=== PATIENT | female | born 1975 | race Asian ===

== ENCOUNTER 2023-10-28 08:51 | Inpatient (IN) ==
--- NOTE | 2023-10-28 09:30 | Emergency Department Note ---
Impression & Plan Pyelonephritis, Acute flank pain ED Provider Note ED Provider Note NAME: HERMILO ORELLANA AGE:47 SEX: Female : 1975 ARRIVES VIA: Private vehicle INFORMANT: Patient ED PROVIDER(s): Rosario Fernandez DO CHIEF COMPLAINT: Urinary symptoms, flank pain, fever HPI: This is a 47-year-old female who presents emergency room due to concern for recent urinary symptoms that began last Saturday. She thought it was because she just had her annual gynecologic exam and was secondary to irritation. However symptoms did not go away and persisted. She states by Saturday she began noticing fevers. Over the weekend patient developed right-sided flank and back pain, had accompanying chills, and felt nauseated. She denies any vomiting. No recent change in stools. She states her urine appears cloudy and dark but she does not notice overt blood. No prior history of kidney problems or kidney stones. She states her temperature reached as high as 39.3 C. PAST MEDICAL HISTORY:See Below PAST SURGICAL HISTORY:See Below FAMILY HISTORY:See Below SOCIAL HISTORY:See Below HOME MEDICATIONS:See Below ALLERGIES:See Below VITALS:See Below PHYSICAL EXAMINATION: GENERAL: alert, unwell appearing, well nourished, no distress, non-toxic EYE EXAM: normal conjunctiva, PERRL and EOM's grossly intact OROPHARYNX: no exudate, no erythema, lips, buccal mucosa, and tongue normal and mucous membranes are moist NECK: supple, no nuchal rigidity, no adenopathy, non-tender LUNGS: Clear to auscultation. Normal chest wall mechanics, no w/r/r HEART: no murmurs, S1 normal and S2 normal ABDOMEN: abdomen soft, non-tender, normo-active bowel sounds, no masses, no rebound or guarding. Pain with palpation along the right flank and into the right CVA region. BACK: Back is symmetrical on inspection and there is no deformity, no midline tenderness, mild right CVA tenderness. SKIN: no rashes, petechiae, orbruising UPPER EXTREMITIES: upper extremities are grossly normal. FROM, nml pulses b/l. LOWER EXTREMITIES: No pitting edema. FROM, nml pulses b/l. NEURO EXAM: Normal sensorium, cranial nerves II-XII grossly intact, normal speech, no facial droop,nogross weakness of arms, no gross weakness of legs. Gross sensation intact. No ataxia. Vital Signs: reviewed and remarkable Differential Diagnosis: UTI, Urethritis, Pyelonephritis, STI, Herpetic, Vaginitis, Hyperglycemia, Yeast, PID, Hemorrhagic Cystitis, amongst other pathologies entertained. MEDICAL DECISION MAKING: This is a 47-year-old female who presents to the emergency department due to concern for urinary symptoms which began last week, worsening right flank pain, fevers and chills. Patient noted to be tachycardic on arrival although other vital signs stable. Labs drawn and sent, IV established, EKG performed at bedside interpreted by me and patient monitored on telemetry. She was started on IV fluids, given IV Toradol for pain. She was given empiric IV Rocephin after review of her allergies. Patient sent for CT of the abdomen and pelvis which did confirm findings concerning for pyelonephritis. Patient did require additional IV morphine here for pain control. While this did help, she required further morphine following this. Due to concern for leukocytosis of 20, elevated procalcitonin, persistent pain and tachycardia, case discussed with the hospitalist team for additional evaluation and management. We did discuss atypical findings noted on CT by radiology and possible need for additional urologic evaluation. Consultation(s): 1334: Discussed with Peter Mcadams hospitalist team, for additional evaluation and management. ER Treatment Provided: See below Diagnostics Interpreted By Me: -ECG: Sinus tachycardia at 120, normal axis, normal intervals, no acute ST/T wave changes -Cardiac Monitoring: An order was placed for continuous cardiac monitoring. The monitor shows a rate of 122 with sinus tachycardia rhythm. -Laboratory studies: As stated above and show below. Triage Nursing Note Reviewed Prior/Outside Records Reviewed Past Med/Surg History Medical History (Updated 10/28/23 @ 16:42 by Roasrio Fernandez DO) Allergies GERD (gastroesophageal reflux disease) Asthma Surgical History (Updated 10/28/23 @ 14:33 by Ann Chakraborty PA-C) History of Family History Father Heart disease Mother Asthma Social History Smoking Status: Never smoker Hx Alcohol Use: Yes Alcohol type: beer, wine and hard liquor Alcohol Intake Frequency: Monthly or Less Hx Substance Use: No Preferred Language: Norwegian Associate Trainer Required: No Beliefs That Will Affect Care: None marital status: Single Current Living Situation: Family Current Living Situation Comment: Lives with her youngest child who is in the 5th grade current occupational status: employed Other Information That Helps Us Care for You: No Feels Safe at Home: Yes Safety Concerns: Feels Safe At This Time Allergies Allergies Allergy/AdvReac Type Severity Reaction Status Date / Time acetaminophen Allergy Rash Verified 10/28/23 10:27 codeine Allergy Rash Verified 10/28/23 10:26 Home Meds Home Medications Medication Instructions Recorded Confirmed Fish Oil 1 cap PO HS 10/28/23 10/28/23 albuterol sulfate 90 mcg/actuation 2 puff inhalation Q4H PRN 10/28/23 10/28/23 aerosol inhaler Shortness Of Breath Or Wheezing cetirizine 10 mg tablet (Zyrtec) 10 mg PO PM 10/28/23 10/28/23 cranberry 1 tab PO HS 10/28/23 10/28/23 lutein 1 tab PO HS 10/28/23 10/28/23 magnesium 1 tab PO HS 10/28/23 10/28/23 multivitamin 1 tab PO DAILY 10/28/23 10/28/23 omeprazole 20 mg tablet,delayed 20 mg PO DAILY PRN gerd 10/28/23 10/28/23 release Results & Data (ED) Vital Signs Vital Signs - 24 hr 10/28/23 08:55 10/28/23 09:24 10/28/23 09:44 Temperature 37.2 C 38.9 C H Temperature Source Temporal Artery Scan Oral Pulse Rate 138 H 122 H Pulse Rate [Apical] Pulse Rate from SpO2 Sensor Pulse Rhythm [Apical] Pulse Strength [Apical] Respiratory Rate 16 Respiratory Effort / Characteristics Non-Labored Respiratory Depth Normal Respiratory Pattern Regular Blood Pressure 115/80 Blood Pressure [Left Arm] Blood Pressure Mean 91 Blood Pressure Mean [Left Arm] Blood Pressure Position [Left Arm] Pulse Oximetry 97 Oxygen Delivery Method Room Air Sepsis Recent Fever Within 48 Hours No Sepsis New/Unexplained Change in Mental Status N/A Sepsis Action Taken by Nursing No Action Required 10/28/23 10:35 10/28/23 10:35 10/28/23 12:07 Temperature 37.1 C 37.1 C 36.8 C Temperature Source Oral Oral Oral Pulse Rate Pulse Rate [Apical] 115 H Pulse Rate from SpO2 Sensor Pulse Rhythm [Apical] Regular Pulse Strength [Apical] Normal Respiratory Rate 18 Respiratory Effort / Characteristics Non-Labored Spontaneous Respiratory Depth Normal Respiratory Pattern Regular Blood Pressure Blood Pressure [Left Arm] 108/65 Blood Pressure Mean Blood Pressure Mean [Left Arm] 79 Blood Pressure Position [Left Arm] Sitting Pulse Oximetry 100 Oxygen Delivery Method Room Air Sepsis Recent Fever Within 48 Hours Sepsis New/Unexplained Change in Mental Status Sepsis Action Taken by Nursing 10/28/23 12:45 10/28/23 12:46 10/28/23 13:21 Temperature Temperature Source Pulse Rate 151 H Pulse Rate [Apical] Pulse Rate from SpO2 Sensor 148 H Pulse Rhythm [Apical] Pulse Strength [Apical] Respiratory Rate 18 Respiratory Effort / Characteristics Respiratory Depth Respiratory Pattern Blood Pressure 115/64 Blood Pressure [Left Arm] Blood Pressure Mean 73 Blood Pressure Mean [Left Arm] Blood Pressure Position [Left Arm] Pulse Oximetry 91 Oxygen Delivery Method Sepsis Recent Fever Within 48 Hours Sepsis New/Unexplained Change in Mental Status Sepsis Action Taken by Nursing 10/28/23 13:30 Temperature Temperature Source Pulse Rate Pulse Rate [Apical] Pulse Rate from SpO2 Sensor 149 H Pulse Rhythm [Apical] Pulse Strength [Apical] Respiratory Rate Respiratory Effort / Characteristics Respiratory Depth Respiratory Pattern Blood Pressure Blood Pressure [Left Arm] Blood Pressure Mean Blood Pressure Mean [Left Arm] Blood Pressure Position [Left Arm] Pulse Oximetry 95 Oxygen Delivery Method Sepsis Recent Fever Within 48 Hours Sepsis New/Unexplained Change in Mental Status Sepsis Action Taken by Nursing Laboratory Data 10/28/23 09:16 10/28/23 09:16 Lab Results 10/28/23 10/28/23 10/28/23 Range/Units 09:16 09:18 10:18 WBC 20.21 H (4.8-10.8) K/ul RBC 4.20 (4.20-5.40) M/uL Hgb 12.6 (12.0-16.0) g/dl Hct 37.0 (37.0-47.0) % MCV 88.1 (80.0-100.0) fL MCH 30.0 (25.0-34.0) pg MCHC 34.1 (32.0-36.0) g/dL RDW Std Deviation 41.3 (36.4-46.3) fL RDW Coeff of Cynthia 12.8 (11.5-14.5) % Plt Count 277 (130-400) K/uL MPV 9.6 (9.4-12.4) fL Immature Gran % (Auto) 0.5 % Neut % (Auto) 89.9 % Lymph % (Auto) 4.7 % Ransom % (Auto) 4.3 % Eos % (Auto) 0.3 % Baso % (Auto) 0.3 % Neut # (Auto) 18.15 H (1.40-6.50) K/uL Lymph # (Auto) 0.95 L (1.20-3.40) K/uL Ransom # (Auto) 0.87 H (0.11-0.59) K/uL Eos # (Auto) 0.06 (0.00-0.50) K/uL Baso # (Auto) 0.07 (0.00-0.20) K/uL Immature Gran # (Auto) 0.11 (0.01-0.20) K/uL Sodium 135 L (136-145) mmol/L Potassium 4.0 (3.5-5.1) mmol/L Chloride 102 (98-107) mmol/L Carbon Dioxide 24 (21-32) mmol/L Anion Gap 9 (3-11) BUN 13 (6-23) mg/dl Creatinine 0.62 (0.6-1.2) mg/dl Est Cr Clr Drug Dosing 95.8 ml/min Est GFR ( Amer) 123.6 ml/min Est GFR (Non-Af Amer) 106.6 ml/min BUN/Creatinine Ratio 21.0 H (10-20) Glucose 137 H (70-99(Fasting)) mg/dl Lactate 1.2 (0.4-2.0) mmol/L Calcium 9.5 (8.6-10.3) mg/dl Magnesium 1.9 (1.7-2.4) mg/dl Total Bilirubin 0.5 (0.2-1.0) mg/dl AST 13 (13-39) U/L ALT 11 (7-52) U/L Alkaline Phosphatase 39 (34-104) U/L Total Protein 8.0 (6.0-8.3) gm/dl Albumin 4.5 (3.4-5.0) gm/dl Globulin 3.5 (2.5-4.0) gm/dl Albumin/Globulin Ratio 1.3 (0.9-2) Lipase 17 (11-82) U/L Procalcitonin 2.24 H (0-0.5) ng/ml Urine Color Yellow Urine Appearance Cloudy A (Clear) Urine pH 6.5 (4.5-7.5) Ur Specific Provencal 1.020 (1.000-1.030) Urine Protein 2+ H (Negative) Urine Glucose (UA) Negative (Negative) Urine Ketones Negative (Negative) Urine Blood 3+ H (Negative) Urine Nitrite Negative (Negative) Urine Bilirubin Negative (Negative) Urine Urobilinogen Negative (Negative) Ur Leukocyte Esterase 3+ H (Negative) Urine RBC 10-30 H (0-4) /hpf Urine WBC >30 H (0-5) /hpf Ur Epithelial Cells 5-10 H (0-5) /lpf Urine Bacteria 3+ H (Negative) Urine Test Negative (Negative) Administered Medications Discontinued Medications Sodium Chloride (Nss) 1,000 mls @ 999 mls/hr IV .Q1H1M ONE Stop: 10/28/23 10:23 Last Infusion: 10/28/23 10:37 Dose: Infused Documented By: Admin: 10/28/23 09:37 Dose: 999 mls/hr Documented By: HETAL Ceftriaxone Sodium (Rocephin) 1,000 mg in 50 mls @ 100 mls/hr IV NOW STA Stop: 10/28/23 10:15 Last Infusion: 10/28/23 10:58 Dose: Infused Documented By: Admin: 10/28/23 10:28 Dose: 100 mls/hr Documented By: HETAL Sodium Chloride (Nss) 1,000 mls @ 999 mls/hr IV .Q1H1M ONE Stop: 10/28/23 10:48 Last Infusion: 10/28/23 15:00 Dose: Infused Documented By: Admin: 10/28/23 10:33 Dose: 999 mls/hr Documented By: HETAL Sodium Chloride (Nss) 1,000 mls @ 125 mls/hr IV .Q8H LOLIS Stop: 11/27/23 13:44 Last Infusion: 10/28/23 16:15 Dose: Infused Documented By: Admin: 10/28/23 14:30 Dose: 125 mls/hr Documented By: WES Cefepime HCl 2,000 mg/ Syringe 20 mls @ 5 mls/min IV NOW ONE; Protocol Stop: 10/28/23 15:03 Last Admin: 10/28/23 14:54 Dose: 5 mls/min Documented By: WES Ioversol (Optiray 320 500ml) 87 ml IV ONCE ONE Stop: 10/28/23 10:51 Last Admin: 10/28/23 10:50 Dose: 87 ml Documented By: DIALLO Ketorolac Tromethamine (Ketorolac Tromethamine 15 Mg/Ml Vial) 10 mg IV NOW ONE Stop: 10/28/23 09:24 Last Admin: 10/28/23 09:35 Dose: 10 mg Documented By: HETAL Morphine Sulfate (Morphine Sulfate 4 Mg/Ml 1 Ml Carp\Vial) 4 mg IV NOW STA Stop: 10/28/23 11:40 Last Admin: 10/28/23 11:52 Dose: 4 mg Documented By: WES Morphine Sulfate (Morphine Sulfate 4 Mg/Ml 1 Ml Carp\Vial) 4 mg IV NOW STA Stop: 10/28/23 13:24 Last Admin: 10/28/23 13:37 Dose: 4 mg Documented By: WES Imaging Data Radiologist's Impression: Abdomen/Pelvis CT 10/28/23 09:[address] WITH IV CONTRAST CT DOSE: 562.87 mGy.cm HISTORY: uti sx, flank pain, f/c TECHNIQUE: Multiaxial CT images of the abdomen and pelvis were performed following the use of intravenous contrast. A dose lowering technique was utilized adhering to the principles of ALARA. COMPARISON STUDY: None. FINDINGS: Mild dependent changes seen at the lung bases. No pneumoperitoneum. No pneumatosis. No acute fractures identified. No hepatic masses. There are few small stones within the gallbladder fundus. No gallbladder wall thickening. The main portal vein is patent. The pancreas, spleen, and adrenal glands unremarkable. There is a punctate stone within the upper pole the left kidney. Mild scarring within the upper pole the left kidney. No left-sided hydronephrosis. There is mild right hydroureteronephrosis to the level of the ureterovesical junction. No obstructing stones identified. There is mild urothelial thickening within the right renal collecting system and right ureter. Subtle heterogeneous enhancement within the right kidney is noted. There is mild right perinephric fat stranding. There is mild bladder wall thickening. The uterus and bilateral adnexa are unremarkable. No pelvic free fluid. No retroperitoneal or pelvic lymphadenopathy. Normal caliber abdominal aorta. No bowel wall thickening or obstruction. Prior rectal anastomosis. No bowel wall thickening or obstruction. Normal appendix. IMPRESSION: 1. There is mild right hydroureteronephrosis to the level of the ureterovesical junction. No obstructing stones identified. There is mild urothelial thickening within the right renal collecting system and right ureter. Subtle heterogeneous enhancement within the right kidney is noted. There is mild right perinephric fat stranding. Therefore, these findings favor a right-sided pyelonephritis/pyelitis. However, this does not explain the right-sided hydronephrosis. This could be due to recently passed stone, an occult stone, or occult obstructing lesion at the ureterovesical junction. Urology consultation recommended. 2. Left-sided nephrolithiasis. No left-sided hydronephrosis. 3. No bowel wall thickening or obstruction. 4. Mild bladder wall thickening. This favors a mild cystitis. Recommend correlation with urinalysis. 5. Normal appendix. 6. Cholelithiasis. No gallbladder wall thickening. ACT 112: Negative or not required by law. Electronically signed by: Blair Kelly M.D. 10/28/2023 11:34 AM Discharge Plan Visit Data Chief Complaint: Urinary Symptoms Stated Complaint: URINARY SYMPTOMS, KIDNEY PAIN ED Provider: Rosario Fernandez Discharge Problem: Pyelonephritis, Acute flank pain Patient Disposition: Admitted As Inpatient Discharge Instructions Interventions: ED Discharge Assessment Last Done: 10/28/23 15:11
[2023-10-28] MEDS: KETOROLAC TROMETHAMINE 15 MG/ML VIAL IV ONE (09:35)
[2023-10-28 09:36] LABS: Basophils # (auto) 0.07 K/uL (0.00-0.20); Basophils % (auto) 0.3 %; Eosinophils # (auto) 0.06 K/uL (0.00-0.50); Eosinophils % (auto) 0.3 %; Hemoglobin 12.6 g/dl (12.0-16.0); Immature Granulocytes # (auto) 0.11 K/uL (0.01-0.20); Immature Granulocytes % (auto) 0.5 %; Lymphocytes # (auto) 0.95 K/uL (1.20-3.40); Lymphocytes % (auto) 4.7 %; Mean Corpuscular Hgb Conc 34.1 g/dL (32.0-36.0); Mean Corpuscular Volume 88.1 fL (80.0-100.0); Mean Platelet Volume 9.6 fL (9.4-12.4); Monocytes # (auto) 0.87 K/uL (0.11-0.59); Monocytes % (auto) 4.3 %; Neutrophils # (auto) 18.15 K/uL (1.40-6.50); Neutrophils % (auto) 89.9 %; Platelet Count 277 K/uL (130-400); RDW Coefficient of Variation 12.8 % (11.5-14.5); RDW Standard Deviation 41.3 fL (36.4-46.3); White Blood Count 20.21 K/ul (4.8-10.8)
[2023-10-28] MEDS: SODIUM CHLORIDE 0.9% 1,000 ML IV ONE ×2 (09:37→10:33)
[2023-10-28 09:39] LABS: Appearance Urine Cloudy (Clear); Bilirubin Urine Negative (Negative); Blood Urine 3+ (Negative); Color Urine Yellow; Glucose Urine UA Negative (Negative); Ketones Urine Negative (Negative); Leukocyte Esterase Urine 3+ (Negative); Nitrite Urine Negative (Negative); Protein Urine 2+ (Negative); Urobilinogen Urine Negative (Negative); pH Urine 6.5 (4.5-7.5)
[2023-10-28 09:48] LABS: Bacteria Urine 3+ (Negative); WBC Urine >30 /hpf (0-5)
[2023-10-28 09:50] LABS: Albumin Globulin Ratio 1.3 (0.9-2); Albumin Level 4.5 gm/dl (3.4-5.0); Bilirubin,Total 0.5 mg/dl (0.2-1.0); Calcium 9.5 mg/dl (8.6-10.3); Creatinine Clr Calc Pharmacy 95.8 ml/min; Est GFR (African American) 123.6 ml/min; Est GFR (Non-African American) 106.6 ml/min; Globulin 3.5 gm/dl (2.5-4.0); Magnesium 1.9 mg/dl (1.7-2.4)
[2023-10-28 10:11] LABS: Pregnancy Test, Urine Negative (Negative)
[2023-10-28] MEDS: cefTRIAXone SODIUM 1,000 MG/50 ML BAG IV STA (10:28)
[2023-10-28] MEDS: OPTIRAY 320 500ml IV ONE (10:50)
--- NOTE | 2023-10-28 11:35 | CT Scan Report ---
ABDOMEN AND PELVIS CT WITH IV CONTRAST CT DOSE: 562.87 mGy.cm HISTORY: uti sx, flank pain, f/c TECHNIQUE: Multiaxial CT images of the abdomen and pelvis were performed following the use of intrave nous contrast. A dose lowering technique was utilized adhering to the principles of ALARA. COMPARISON STUDY: None. FINDINGS: Mild dependent changes seen at the lung bases. No pneumoperitoneum. No pneumatosis. No acut e fractures identified. No hepatic masses. There are few small stones within the gallbladder fundus. No gallbladder wall thickening. The main portal vein is patent. The pancreas, spleen, and adrenal gla nds unremarkable. There is a punctate stone within the upper pole the left kidney. Mild scarring with in the upper pole the left kidney. No left-sided hydronephrosis. There is mild right hydroureteroneph rosis to the level of the ureterovesical junction. No obstructing stones identified. There is mild ur othelial thickening within the right renal collecting system and right ureter. Subtle heterogeneous e nhancement within the right kidney is noted. There is mild right perinephric fat stranding. There is mild bladder wall thickening. The uterus and bilateral adnexa are unremarkable. No pelvic free fluid. No retroperitoneal or pelvic lymphadenopathy. Normal caliber abdominal aorta. No bowel wall thickeni ng or obstruction. Prior rectal anastomosis. No bowel wall thickening or obstruction. Normal appendix . IMPRESSION: 1. There is mild right hydroureteronephrosis to the level of the ureterovesical junction. No obstruct ing stones identified. There is mild urothelial thickening within the right renal collecting system a nd right ureter. Subtle heterogeneous enhancement within the right kidney is noted. There is mild rig ht perinephric fat stranding. Therefore, these findings favor a right-sided pyelonephritis/pyelitis. However, this does not explain the right-sided hydronephrosis. This could be due to recently passed s tone, an occult stone, or occult obstructing lesion at the ureterovesical junction. Urology consultat ion recommended. 2. Left-sided nephrolithiasis. No left-sided hydronephrosis. 3. No bowel wall thickening or obstruction. 4. Mild bladder wall thickening. This favors a mild cystitis. Recommend correlation with urinalysis. 5. Normal appendix. 6. Cholelithiasis. No gallbladder wall thickening. ACT 112: Negative or not required by law. Electronically signed by: Blair Kelly M.D. 10/28/2023 11:34 AM
[2023-10-28] MEDS: MoRPHine SULFATE 4 MG/ML 1 ML CARP\\VIAL IV STA ×2 (11:52→13:37)
--- NOTE | 2023-10-28 13:03 | Electrocardiogram Report ---
Test Reason : Blood Pressure : / mmHG Vent. Rate : 120 BPM Atrial Rate : 120 BPM P-R Int : 162 ms QRS Dur : 076 ms QT Int : 298 ms P-R-T Axes : 039 017 020 degrees QTc Int : 421 ms Sinus tachycardia Otherwise normal ECG No previous ECGs available Confirmed by Yousif Leonard ([id number]) on 10/28/2023 1:03:14 PM Referred By: Zoie ePrry Confirmed By:Yousif Leonard
--- NOTE | 2023-10-28 13:39 | History & Physical Report ---
Date of Service October 28, 2023 Assessment & Plan (1) Pyelonephritis: (2) Hydronephrosis, right: (3) Sepsis: Plan: Patient is a 47-year-old female with PMH asthma, allergies, GERD presented to ER with complaint of dysuria x 5 days with right flank pain and fever x 2 days. In ER T38.9C, P: 138, R: 16, BP 115/80, 97% on room air. WBC: 20. Lactate WNL, Procalcionin: 2.2. UA: 3+blood, 3+ leuk esterase, >30 WBC, 3+bacteria, 5-10 epithelial cells In ER received 2 L NSS, morphine, Toradol, Rocephin 1 g Blood cultures pending Urine culture pending Patient reassessed currently afebrile, P: 143, BP: 115/64. skin warm, dry, normal capillary refill Reassessed again at 1400 with BP: 95/59 and P: 124. No acute distress, mucous membranes moist, normal capillary refill. Cefepime IVF Toradol, oxycodone, morphine prn pain CBC, BMP in am Urology consult (4) Allergies: Plan: History allergic rhinitis and chronic intermittent hives Benadryl prn Continue home zyrtec (5) Asthma: Plan: No acute exacerbation Continue albuterol prn (6) GERD (gastroesophageal reflux disease): Plan: Chronic. stable Pepcid prn (7) Sprain of medial collateral ligament of left knee: Plan: Following with ortho Continue knee brace as previously directed by ortho DVT Prophylaxis SCDs Full Code as per discussion with pt Follows with Dr Zoie Salazar for routine care Pt was seen and care coordinated with Dr Cummins. See addendum I spent a total of 75 minutes reviewing notes, outpatient records, labs, medication, coordinating, documenting and providing care for this patient excluding time spent in the performance of separately billed services. History of Present Illness Chief Complaint: Flank pain and fever Primary Care Provider: Zoie Perry DO Patient is a 47-year-old female with PMH asthma, allergies, GERD presented to ER with complaint of right flank pain and fever. History obtained from patient as well as outpatient chart review. Patient states 5 days ago started with dysuria and cloudy urine. Had routine gynecology check up 5 days ago. States urinary symptoms have not improved. Two days ago started with right back pain. Yesterday with fever. Tmax 39.3 C at home last night and also having chills. Has some na usea without vomiting. States has been eating and drinking normally. States has hives intermittently and takes Zyrtec daily for chronic pruritus. Denies vaginal discharge. Denies diarrhea, constipation, MARTIN, dizziness, syncope, vision changes, neck pain, CP, SOB, orthopnea, palpitations, cough, sore throat, rhinorrhea, other abdominal pain, paresthesias, weakness, extremity edema, rashes, hematuria. Allergies Allergy/AdvReac Type Severity Reaction Status Date / Time acetaminophen Allergy Rash Verified 10/28/23 10:27 codeine Allergy Rash Verified 10/28/23 10:26 Home Medications Medication Instructions Recorded Confirmed Type Fish Oil 1 cap PO HS 10/28/23 10/28/23 History albuterol sulfate 90 mcg/actuation 2 puff inhalation Q4H PRN 10/28/23 10/28/23 History aerosol inhaler Shortness Of Breath Or Wheezing cetirizine 10 mg tablet (Zyrtec) 10 mg PO PM 10/28/23 10/28/23 History cranberry 1 tab PO HS 10/28/23 10/28/23 History lutein 1 tab PO HS 10/28/23 10/28/23 History magnesium 1 tab PO HS 10/28/23 10/28/23 History multivitamin 1 tab PO DAILY 10/28/23 10/28/23 History omeprazole 20 mg tablet,delayed 20 mg PO DAILY PRN gerd 10/28/23 10/28/23 History release Past Med/Surg History Medical History (Updated 10/28/23 @ 16:42 by Rosario Fernandez DO) Allergies GERD (gastroesophageal reflux disease) Asthma Surgical History (Updated 10/28/23 @ 14:33 by Ann Chakraborty PA-C) History of Family History Father Heart disease Mother Asthma Social History Smoking Status: Never smoker Hx Alcohol Use: Yes Alcohol type: beer, wine and hard liquor Alcohol Intake Frequency: Monthly or Less Hx Substance Use: No Preferred Language: Amharic Glaze Wiper Required: No Beliefs That Will Affect Care: None marital status: Single Current Living Situation: Family Current Living Situation Comment: Lives with her youngest child who is in the 5th grade current occupational status: employed Other Information That Helps Us Care for You: No Feels Safe at Home: Yes Safety Concerns: Feels Safe At This Time Review of Systems Review of Systems: All systems reviewed & are unremarkable except as noted in HPI & below Physical Exam Physical Exam: General: no acute distress, non-toxic appearing, WDWN Head: normocephalic, atraumatic Eyes: conjunctiva non-injected, anicteric ENT: normal inspection external ears, nose, mucous membranes moist Neck: supple, trachea midline, non-tender Lungs: clear, no respiratory distress, no wheezing/rhonchi/rales CV: +tachycardic, rate 138, regular rhythm, no murmur, no pretibial edema Abd: normal BS, soft, +right CVA tenderness to palpation, otherwise abdomen non- tender Ext: no cyanosis, no calf tenderness Neuro: A&O x 3, no focal deficits noted, normal affect Skin: warm, dry Results & Data Results & Data Vital Signs (Past 12 Hours) Vital Signs Temp Pulse Pulse Resp BP BP Pulse Ox 10/28/23 12:07 36.8 C 10/28/23 10:35 37.1 C 115 H 18 108/65 100 10/28/23 10:35 37.1 C 10/28/23 09:44 122 H 10/28/23 09:24 38.9 C H 10/28/23 08:55 37.2 C 138 H 16 115/80 97 O2 Del Method 10/28/23 12:07 10/28/23 10:35 Room Air 10/28/23 10:35 10/28/23 09:44 10/28/23 09:24 10/28/23 08:55 Room Air Laboratory Results Short CBC 10/28/23 Range/Units 09:16 WBC 20.21 H (4.8-10.8) K/ul Hgb 12.6 (12.0-16.0) g/dl Hct 37.0 (37.0-47.0) % Plt Count 277 (130-400) K/uL BMP 10/28/23 09:16 Sodium 135 L Potassium 4.0 Chloride 102 Carbon Dioxide 24 BUN 13 Creatinine 0.62 Glucose 137 H Calcium 9.5 Liver Function 10/28/23 Range/Units 09:16 Total Bilirubin 0.5 (0.2-1.0) mg/dl AST 13 (13-39) U/L ALT 11 (7-52) U/L Alkaline Phosphatase 39 (34-104) U/L Albumin 4.5 (3.4-5.0) gm/dl Urine 10/28/23 Range/Units 09:18 Urine Color Yellow Urine Appearance Cloudy A (Clear) Urine pH 6.5 (4.5-7.5) Ur Specific [place] 1.020 (1.000-1.030) Urine Protein 2+ H (Negative) Urine Glucose (UA) Negative (Negative) Diagnostic Findings Abdomen/Pelvis CT 10/28/23 09:[address] WITH IV CONTRAST CT DOSE: 562.87 mGy.cm HISTORY: uti sx, flank pain, f/c TECHNIQUE: Multiaxial CT images of the abdomen and pelvis were performed following the use of intravenous contrast. A dose lowering technique was utilized adhering to the principles of ALARA. COMPARISON STUDY: None. FINDINGS: Mild dependent changes seen at the lung bases. No pneumoperitoneum. No pneumatosis. No acute fractures identified. No hepatic masses. There are few small stones within the gallbladder fundus. No gallbladder wall thickening. The main portal vein is patent. The pancreas, spleen, and adrenal glands unremarkable. There is a punctate stone within the upper pole the left kidney. Mild scarring within the upper pole the left kidney. No left-sided hydronephrosis. There is mild right hydroureteronephrosis to the level of the ureterovesical junction. No obstructing stones identified. There is mild urothelial thickening within the right renal collecting system and right ureter. Subtle heterogeneous enhancement within the right kidney is noted. There is mild right perinephric fat stranding. There is mild bladder wall thickening. The uterus and bilateral adnexa are unremarkable. No pelvic free fluid. No retroperitoneal or pelvic lymphadenopathy. Normal caliber abdominal aorta. No bowel wall thickening or obstruction. Prior rectal anastomosis. No bowel wall thickening or obstruction. Normal appendix. IMPRESSION: 1. There is mild right hydroureteronephrosis to the level of the ureterovesical junction. No obstructing stones identified. There is mild urothelial thickening within the right renal collecting system and right ureter. Subtle heterogeneous enhancement within the right kidney is noted. There is mild right perinephric fat stranding. Therefore, these findings favor a right-sided pyelonephritis/pyelitis. However, this does not explain the right-sided hydronephrosis. This could be due to recently passed stone, an occult stone, or occult obstructing lesion at the ureterovesical junction. Urology consultation recommended. 2. Left-sided nephrolithiasis. No left-sided hydronephrosis. 3. No bowel wall thickening or obstruction. 4. Mild bladder wall thickening. This favors a mild cystitis. Recommend correlation with urinalysis. 5. Normal appendix. 6. Cholelithiasis. No gallbladder wall thickening. ACT 112: Negative or not required by law. Electronically signed by: Blair Kelly M.D. 10/28/2023 11:34 AM ECG Additional Comments: sinus tachycardia, rate 120 per my interpretation Supervising Physician Co-Signing Physician Notes I have seen and discussed the case with the collaborating FARZAD. I agree with the above H&P. I have reviewed and confirmed the patients medical history, the findings on physical examination, and the patients diagnosis and treatment plan with [place] PANDA and agree with the information documented. In short, Ms. Wilkerson is a 47 year old woman with mild intermittent asthma, allergic rhinitis, and MCL tear who is admitted for evaluation of right flank pain and found to have pyelonephritis and right hydronephrosis. Imaging also noted left sided nephrolithiasis. Patient states symptoms ongoing since last Saturday, then marked by extreme flank pain and fevers prompting presentation. Patient hypotensive and tachycardic in ED. s/p 2L, CTX, and ketorlac/morphine. Labs with abnormal UA c/w infection and WBC to 20. EKG reviewed with sinus tachycardia. GENERAL APPEARANCE: AxOx4, generally well-appearing female with occasional rigors, however no acute distress. HEENT: NC, AT. MMM. EOMI, clear conjunctiva, oropharynx clear. NECK: Supple without lymphadenopathy. No stiffness or restricted ROM. HEART: tachycardic LUNGS: CTAB, moving air well. No crackles or wheezes are heard. ABDOMEN: Soft, nontender, nondistended with good bowel sounds heard. BACK: +CVAT on right to mild palpation EXTREMITIES: Without cyanosis, clubbing or edema. NEUROLOGICAL: Grossly nonfocal. Alert and oriented, moving all 4 extremities. C N not formally tested but appear grossly intact Skin: Warm to touch #Sepsis secondary to acute pyelonephritis #Right hydronephrosis -s/p fluid resuscitation, CTX in ED -Sinus tachycardia iso infection -Broadened CTX to Cefepime -Continue IVF @ 125 -Urology consulted -No urologic intervention at this time -Follow up OP for further eval of hydronephrosis -NPO at midnight for possible intervention contingent on clinical improvement Rest of plan as above I spent a total of 45 minutes coordinating, documenting, and providing care for this patient excluding time spent in the performance of separately billed services. All of the aforementioned completed outside of collaborating with the assigned physician periodicals library assistant for a full treatment plan.
[2023-10-28] MEDS: SODIUM CHLORIDE 0.9% 1,000 ML IV SCH ×2 (14:30→17:33)
[2023-10-28] MEDS: CEFEPIME 2,000 MG in SYRINGE 0 ML IV ONE (14:54)
--- NOTE | 2023-10-28 15:10 | Urology Consultation ---
Date of Consultation October 28, 2023 Assessment & Plan (1) Hydronephrosis, right: (2) Pyelonephritis: (3) Acute flank pain: Plan 47yo F who presented with flank pain, fever, and chills admitted with UTI/pyelonephritis. CT abd pelvis on arrival demonstrated mild right-sided h ydronephrosis to the level of the UVJ with no obstructing stone identified, mild urothelial thickening within the right renal collecting system and right ureter and mild right perinephric fat stranding which favors right-sided pyelonephrosis. - Pt currently afebrile, normotensive but tachycardic. (Tmax 38.9C earlier this morning). - Labs show a white count of 20.21 and normal renal function. - Urine and blood cultures are pending. - Received dose of Rocephin in the ED. On Cefepime. Follow cultures and tailor as culture data becomes available. - Voiding spontaneously, continue to monitor. - No plan for urological intervention at this time. - Continue supportive care and antibiotic therapy for treatment of infection. - We reviewed her CT findings suggestive of pyelonephritis and also the right- sided hydronephrosis. - Discussed recommendation for further workup of the right hydronephrosis as outpatient with repeat imaging and cystoscopy after acute issue/infection has resolved. She is agreeable. - Also reviewed that if she fails to clinically progress or acutely worsens, we may need to revisit ureteral stent placement. - Urology will follow. Plan of care reviewed with Dr. Donohue, on-call urologist. History of Present Illness History of Present Illness 47 year old female who presented to the ED 10/28/23 with right flank/back pain, fever, chills, and nausea. She thought it was because she just had her annual gynecologic exam and was secondary to irritation. However symptoms progressively worsened. In the ER she had a Tmax of 38.9C, tachycardic but normotensive. ED course: IVF, morphine, Toradol, Rocephin. Labs showing a leukocytosis of 20 and normal renal function. Urinalysis with 3+ blood, 3+ LE, 3+ bacteria, negative nitrite. CT abdomen pelvis obtained and demonstrated mild right hydronephrosis to the level of the UVJ with no obstructing stone identified, Mild urothelial thickening within the right renal collecting system and right ureter, subtle enhancement within the right kidney also noted with mild perinephric stranding with findings favoring right-sided pyelonephritis. H owever does not explain the right-sided hydronephrosis which could be due to recently passed stone, an occult stone, or obstructing lesion. Pt admitted to medicine service for continued care and management. Urology consulted for pyelonephritis, right-sided hydronephrosis CT abdomen pelvis- 1. There is mild right hydroureteronephrosis to the level of the ureterovesical junction. No obstructing stones identified. There is mild urothelial thickening within the right renal collecting system and right ureter. Subtle heterogeneous enhancement within the right kidney is noted. There is mild right perinephric fat stranding. Therefore, these findings favor a right-sided pyelonephritis/pyelitis. However, this does not explain the right-sided hydronephrosis. This could be due to recently passed stone, an occult stone, or occult obstructing lesion at the ureterovesical junction. Urology consultation recommended. 2. Left-sided nephrolithiasis. No left-sided hydronephrosis. 3. No bowel wall thickening or obstruction. 4. Mild bladder wall thickening. This favors a mild cystitis. Recommend correlation with urinalysis. 5. Normal appendix. 6. Cholelithiasis. No gallbladder wall thickening. Patient examined at bedside this afternoon in the ED. Awake, resting in bed on arrival. No acute distress. Still with right-sided pain and suprapubic pain but significantly improved since arrival. Denies fever, chills, nausea, vomiting at present. Voiding spontaneously. Denies hematuria. Reports some dysuria. Denies prior urological history. Denies prior history of kidney stones. Has never seen a urologist. Allergies Allergy/AdvReac Type Severity Reaction Status Date / Time acetaminophen Allergy Rash Verified 10/28/23 10:27 codeine Allergy Rash Verified 10/28/23 10:26 Home Medications Medication Instructions Recorded Confirmed Type Fish Oil 1 cap PO HS 10/28/23 10/28/23 History albuterol sulfate 90 mcg/actuation 2 puff inhalation Q4H PRN 10/28/23 10/28/23 History aerosol inhaler Shortness Of Breath Or Wheezing cetirizine 10 mg tablet (Zyrtec) 10 mg PO PM 10/28/23 10/28/23 History cranberry 1 tab PO HS 10/28/23 10/28/23 History lutein 1 tab PO HS 10/28/23 10/28/23 History magnesium 1 tab PO HS 10/28/23 10/28/23 History multivitamin 1 tab PO DAILY 10/28/23 10/28/23 History omeprazole 20 mg tablet,delayed 20 mg PO DAILY PRN gerd 10/28/23 10/28/23 History release Patient History Medical History (Updated 10/28/23 @ 14:33 by Ann Chakraborty PA-C) Allergies GERD (gastroesophageal reflux disease) Asthma Surgical History (Updated 10/28/23 @ 14:33 by Ann Chakraborty PA-C) History of Family History Father Heart disease Mother Asthma Social History Smoking Status: Never smoker Hx Alcohol Use: Yes Alcohol type: beer, wine and hard liquor Alcohol Intake Frequency: Monthly or Less Hx Substance Use: No Preferred Language: Icelandic Protector Plate Attacher Required: No Beliefs That Will Affect Care: None marital status: Single Current Living Situation: Family Current Living Situation Comment: Lives with her youngest child who is in the 5th grade current occupational status: employed Other Information That Helps Us Care for You: No Feels Safe at Home: Yes Safety Concerns: Feels Safe At This Time Review of Systems Review of Systems: All systems reviewed & are unremarkable except as noted in HPI & below Physical Exam Constitutional: no acute distress Neck: normal visual inspection Respiratory: no respiratory distress and no labored breathing Gastrointestinal (Abdomen): Mild tenderness with palpation to suprapubic area and right abd/flank Musculoskeletal: Head/Neck/Chest: normocephalic Skin: No visible rashes or lesions to exposed skin areas Neurologic: moves all extremities and awake Psychiatric: A+Ox3, euthymic affect Results & Data Vital Signs (Past 12 Hours) Vital Signs Temp Pulse Pulse Resp BP BP Pulse Ox 10/28/23 14:30 138 H 19 94 10/28/23 14:00 143 H 20 92 10/28/23 13:47 142 H 10/28/23 13:30 95 10/28/23 13:21 91 10/28/23 12:46 115/64 10/28/23 12:45 151 H 18 10/28/23 12:07 36.8 C 10/28/23 10:35 37.1 C 115 H 18 108/65 100 10/28/23 10:35 37.1 C 10/28/23 09:44 122 H 10/28/23 09:24 38.9 C H 10/28/23 08:55 37.2 C 138 H 16 115/80 97 O2 Del Method 10/28/23 14:30 10/28/23 14:00 10/28/23 13:47 10/28/23 13:30 10/28/23 13:21 10/28/23 12:46 10/28/23 12:45 10/28/23 12:07 10/28/23 10:35 Room Air 10/28/23 10:35 10/28/23 09:44 10/28/23 09:24 10/28/23 08:55 Room Air PG Care Time/CCT Total # of Minutes Spent Total Time Spent with Patient: Total time spent is greater than 50% in coordination of care (as documented) at patient's floor/unit and/or counseling patient: Coding Level of Care Code 12716 IN/OBS CONSULT LVL 3,45M Diagnoses Hydronephrosis, right N13.30 Pyelonephritis N12 Acute flank pain R10.9
[2023-10-28] MEDS ORDERED: ALBUTEROL HFA 8 GM INHALER INH PRN (16:03)
[2023-10-28] MEDS ORDERED: TRIAMCINOLONE ACET 0.1% OINT 15 GM TUBE EXT PRN (16:03)
[2023-10-28] MEDS ORDERED: oxyCODONE HCL IR 5 MG TAB (IMMEDIATE RELEASE) PO PRN (16:03)
[2023-10-28] MEDS ORDERED: FAMOTIDINE 20 MG TAB PO PRN (16:03)
[2023-10-28] MEDS ORDERED: MoRPHine SULFATE 4 MG/ML 1 ML CARP\\VIAL IV PRN (16:03)
[2023-10-28] MEDS ORDERED: POLYETHYLENE (MIRALAX) 17 GM PACK PO PRN (16:03)
[2023-10-28] MEDS ORDERED: diphenhydrAMINE Capsule 25 MG CAP PO PRN (16:03)
[2023-10-28] MEDS: CETIRIZINE HCL 10 MG TABLET PO SCH (20:12)
[2023-10-28] MEDS: CEFEPIME 2,000 MG in SYRINGE 0 ML IV SCH (22:33)
[2023-10-28 22:47] LABS: A calco-baum cmplx NotReported Not Detected (NotDetected); Bact fragilis Not Reported Not Detected (NotDetected); Blood Culture Id Panel See PCR Comment (NotDetected); C auris Not Reported Not Detected (NotDetected); CTX-M Resistant Gene Not Detected (NotDetected); Calbicans Not Reported Not Detected (NotDetected); Candida glabrata Not Reported Not Detected (NotDetected); Candida krusei Not Reported Not Detected (NotDetected); Cneoformans/gatti Not Reported Not Detected (NotDetected); Cparapsilosis Not Reported Not Detected (NotDetected); E cloacae compx Not Reported Not Detected (NotDetected); Efaecalis Not Reported Not Detected (NotDetected); Efaecium Not Reported Not Detected (NotDetected); Enterobacterales DETECTED (NotDetected); Enterobacterales Not Reported DETECTED (NotDetected); Escherichia coli Not Reported DETECTED (NotDetected); H influenzae Not Reported Not Detected (NotDetected); IMP Resistant Gene Not Detected (NotDetected); K aerogenes Not Reported Not Detected (NotDetected); KPC Resistant Gene Not Detected (NotDetected); Koxytoca Not Reported Not Detected (NotDetected); Kpneumoniae grp Not Reported Not Detected (NotDetected); Lmonocyt Not Reported Not Detected (NotDetected); N meningitidis Not Reported Not Detected (NotDetected); NDM Resistant Gene Not Detected (NotDetected); OXA 48 Like Resistant Gene Not Detected (NotDetected); P aeruginosa Not Reported Not Detected (NotDetected); Proteus spp Not Reported Not Detected (NotDetected); Salmonella spp Not Reported Not Detected (NotDetected); Smarcescens Not Reported Not Detected (NotDetected); Staph lugdunensis Not Reported Not Detected (NotDetected); Staph spp. Not Reported Not Detected (NotDetected); Staphaureus Not Reported Not Detected (NotDetected); Staphepi Not Reported Not Detected (NotDetected); Stenmaltophilia Not Reported Not Detected (NotDetected); Strep agal(GrpB) Not Reported Not Detected (NotDetected); Strep pneum Not Reported Not Detected (NotDetected); Strep pyog (GrpA) Not Reported Not Detected (NotDetected); Strep spp Not Reported Not Detected (NotDetected); VIM Resistant Gene Not Detected (NotDetected); mcr-1 Colistin Resistant Gene Not Detected (NotDetected)
[2023-10-28] MEDS: KETOROLAC TROMETHAMINE 15 MG/ML VIAL IV PRN (23:38)
[2023-10-29 07:07] LABS: Basophils # (auto) 0.05 K/uL (0.00-0.20); Basophils % (auto) 0.3 %; Eosinophils # (auto) 0.18 K/uL (0.00-0.50); Eosinophils % (auto) 1.2 %; Hematocrit (blood only) 31.1 % (37.0-47.0); Hemoglobin 10.2 g/dl (12.0-16.0); Immature Granulocytes # (auto) 0.07 K/uL (0.01-0.20); Immature Granulocytes % (auto) 0.5 %; Lymphocytes # (auto) 1.82 K/uL (1.20-3.40); Lymphocytes % (auto) 11.9 %; Mean Corpuscular Hemoglobin 29.3 pg (25.0-34.0); Mean Corpuscular Hgb Conc 32.8 g/dL (32.0-36.0); Mean Corpuscular Volume 89.4 fL (80.0-100.0); Monocytes % (auto) 6.6 %; Neutrophils # (auto) 12.14 K/uL (1.40-6.50); Neutrophils % (auto) 79.5 %; Platelet Count 221 K/uL (130-400); RDW Coefficient of Variation 13.2 % (11.5-14.5); RDW Standard Deviation 43.4 fL (36.4-46.3); Red Blood Count 3.48 M/uL (4.20-5.40); White Blood Count 15.26 K/ul (4.8-10.8)
[2023-10-29 07:27] LABS: BUN Creatinine Ratio 21.1 (10-20); Calcium 8.3 mg/dl (8.6-10.3); Creatinine Clr Calc Pharmacy 104.2 ml/min; Est GFR (African American) 127.1 ml/min; Est GFR (Non-African American) 109.6 ml/min; Potassium 3.5 mmol/L (3.5-5.1)
--- NOTE | 2023-10-29 07:37 | Urology Progress Note ---
Date of Service October 29, 2023 Assessment & Plan (1) Hydronephrosis, right: (2) Pyelonephritis: (3) Acute flank pain: Plan 47yo F who presented with flank pain, fever, and chills admitted with UTI/pyelonephritis. CT abd pelvis on arrival demonstrated mild right-sided hydronephrosis to the level of the UVJ with no obstructing stone identified, mild urothelial thickening within the right renal collecting system and right ureter and mild right perinephric fat stranding which favors right-sided pyelonephrosis. - Subjectively feeling better today. - Pt currently afebrile, normotensive and mildly tachycardic. - Labs today show leukocytosis downtrending 20k-15k and creatinine 0.57. - Urine and blood cultures preliminary gram-negative bacilli. On IV Cefepime. - Voiding spontaneously, continue to monitor. - No plan for urological intervention. - Continue supportive care and pain management as needed. - Continue antibiotics and tailor as culture data becomes available. - We discussed that she will need further evaluation as an outpatient with repeat imaging and possible cystoscopy after her acute issues/infection have resolved, she is agreeable. - Urology will follow peripherally. Plan of care reviewed with Dr. Martins, on-call urologist. Admission and Anticipated Discharge Date Admission Date: October 28, 2023 Subjective Pt examined at bedside this AM. Awake, resting in bed on arrival. No acute distress. Feeling better overall. Reports some mild pain earlier this morning but denies pain at present. No fevers or chills. Denies nausea or vomiting. Voiding without issue. Denies hematuria or dysuria. Review of Systems Constitutional: as per Subjective / HPI Genitourinary: as per Subjective / HPI Physical Exam Constitutional: no acute distress Respiratory: no respiratory distress and no labored breathing Neurologic: moves all extremities and awake Psychiatric: A+Ox3, euthymic affect Results & Data Vital Signs (Past 12 Hours) Vital Signs Temp Pulse Pulse Resp BP Pulse Ox O2 Del Method 10/29/23 07:30 37.1 C 108 H 20 112/70 93 Room Air 10/29/23 03:42 36.6 C 91 H 18 100/64 95 Room Air 10/28/23 23:54 99 H 10/28/23 23:46 37.0 C 106 H 18 98/60 L 93 Room Air 10/28/23 19:55 36.7 C 103 H 18 96/64 L 94 Room Air PG Care Time/CCT Total # of Minutes Spent Total Time Spent with Patient: Total time spent is greater than 50% in coordination of care (as documented) at patient's floor/unit and/or counseling patient: Coding Level of Care Code 34250 SUB INP/OBS CARE 2/35MIN Diagnoses Hydronephrosis, right N13.30 Pyelonephritis N12 Acute flank pain R10.9
--- NOTE | 2023-10-29 07:50 | Electrocardiogram Report ---
Test Reason : Blood Pressure : / mmHG Vent. Rate : 119 BPM Atrial Rate : 119 BPM P-R Int : 174 ms QRS Dur : 090 ms QT Int : 306 ms P-R-T Axes : 052 027 033 degrees QTc Int : 430 ms Sinus tachycardia Otherwise normal ECG When compared with ECG of 28-OCT-2023 09:43, No significant change was found Confirmed by Yousif Leonard ([id number]) on 10/29/2023 7:49:49 AM Referred By: Zoie Perry Confirmed By:Yousif Leonard
[2023-10-29] MEDS ORDERED: MULTIVITAMIN CHEWABLE TAB PO SCH (09:00)
--- NOTE | 2023-10-29 10:44 | Hospitalist Progress Note ---
Date of Service October 29, 2023 Assessment & Plan (1) Pyelonephritis: (2) Hydronephrosis, right: (3) Sepsis: Plan: Gram negative bacteremia Patient is a 47-year-old female with PMH asthma, allergies, GERD presented to ER with complaint of dysuria x 5 days with right flank pain and fever x 2 days. In ER T38.9C, P: 138, R: 16, BP 115/80, 97% on room air. WBC: 20. Lactate WNL, Procalcionin: 2.2. UA: 3+blood, 3+ leuk esterase, >30 WBC, 3+bacteria, 5-10 epithelial cells In ER received 2 L NSS, morphine, Toradol, Rocephin 1 g Blood cultures - posit. for GNB Repeat blood cultx repeated Urine culture - posit. for GNB Patient currently afebrile. WBC down from 20K to 15K BP: 95/59 - cont. IVF No acute distress, mucous membranes moist, normal capillary refill. cont. Cefepime IVF Toradol, oxycodone, morphine prn pain CBC, BMP in am Urology consulted - no plan for any intervention at this time. Cont. to follow. Likely follow up as outpt. (4) Allergies: Plan: History allergic rhinitis and chronic intermittent hives Benadryl prn Continue home zyrtec (5) Asthma: Plan: No acute exacerbation Continue albuterol prn (6) GERD (gastroesophageal reflux disease): Plan: Chronic. stable Pepcid prn (7) Sprain of medial collateral ligament of left knee: Plan: Following with ortho Continue knee brace as previously directed by ortho DVT Prophylaxis SCDs Full Code as per discussion with pt Follows with Dr Zoie Salazar for routine care Admission and Anticipated Discharge Date Admission Date: October 28, 2023 Subjective Pt seen in follow up of sepsis secondary to pyelonephritis. Gram negative bacteremia Urology also consulted on admission WBC down from 20k to 15K. Febrile yesterday, currently afebrile. Currently laying in bed, in no acute distress. Overall feeling much better today. She has slight abdominal tenderness however overall feels better. No nausea or vomiting. Review of Systems Review of Systems: All systems reviewed & are unremarkable except as noted in Subjective Physical Exam Physical Exam: General: WDWN F in NAD Head: normocephalic, atraumatic Eyes: conjunctiva non-injected, anicteric ENT: normal inspection external ears, nose, mucous membranes moist Neck: supple Lungs: clear, no respiratory distress, no wheezing/rhonchi/rales CV: rrr, no murmur, no pretibial edema Abd: normal BS, soft, +right CVA tenderness to palpation (much improved), otherwise abdomen non-tender Ext: moves extremities Neuro: A&O x 3, no focal deficits noted, normal affect Skin: warm, dry Results & Data Results & Data Vital Signs (Past 12 Hours) Vital Signs Temp Pulse Pulse Resp BP Pulse Ox O2 Del Method 10/29/23 07:30 37.1 C 108 H 20 112/70 93 Room Air 10/29/23 05:56 100 H 10/29/23 03:42 36.6 C 91 H 18 100/64 95 Room Air 10/28/23 23:54 99 H 10/28/23 23:46 37.0 C 106 H 18 98/60 L 93 Room Air Laboratory Results 10/29/23 10/28/23 10/28/23 Range/Units 06:15 10:26 09:16 WBC 15.26 H (4.8-10.8) K/ul RBC 3.48 L (4.20-5.40) M/uL Hgb 10.2 L (12.0-16.0) g/dl Hct 31.1 L (37.0-47.0) % MCV 89.4 (80.0-100.0) fL MCH 29.3 (25.0-34.0) pg MCHC 32.8 (32.0-36.0) g/dL RDW Std Deviation 43.4 (36.4-46.3) fL RDW Coeff of Cynthia 13.2 (11.5-14.5) % Plt Count 221 (130-400) K/uL MPV 10.0 (9.4-12.4) fL Immature Gran % (Auto) 0.5 % Neut % (Auto) 79.5 % Lymph % (Auto) 11.9 % Jerauld % (Auto) 6.6 % Eos % (Auto) 1.2 % Baso % (Auto) 0.3 % Neut # (Auto) 12.14 H (1.40-6.50) K/uL Lymph # (Auto) 1.82 (1.20-3.40) K/uL Jerauld # (Auto) 1.00 H (0.11-0.59) K/uL Eos # (Auto) 0.18 (0.00-0.50) K/uL Baso # (Auto) 0.05 (0.00-0.20) K/uL Immature Gran # (Auto) 0.07 (0.01-0.20) K/uL Sodium 140 (136-145) mmol/L Potassium 3.5 (3.5-5.1) mmol/L Chloride 111 H (98-107) mmol/L Carbon Dioxide 25 (21-32) mmol/L Anion Gap 4 (3-11) BUN 12 (6-23) mg/dl Creatinine 0.57 L (0.6-1.2) mg/dl Est Cr Clr Drug Dosing 104.2 ml/min Est GFR ( Amer) 127.1 ml/min Est GFR (Non-Af Amer) 109.6 ml/min BUN/Creatinine Ratio 21.1 H (10-20) Glucose 79 (70-99(Fasting)) mg/dl Calcium 8.3 L (8.6-10.3) mg/dl Procalcitonin 2.24 H (0-0.5) ng/ml Enterobacterales (PCR) DETECTED A (NotDetected) E. coli (PCR) DETECTED A (NotDetected) mcr-1 Colistin Res Gene PCR Not Detected (NotDetected) blaIMP Car res Gene PCR Not Detected (NotDetected) KPC-Carbap Res Gene PCR Not Detected (NotDetected) blaNDM Car Res Gene PCR Not Detected (NotDetected) OXA-48 Carbapenem Resis Gene (PCR) Not Detected (NotDetected) blaVIM Car Res Gene PCR Not Detected (NotDetected) CTX-M Gene Resistance (PCR) Not Detected (NotDetected) Bld Cult ID Panel PCR See PCR Comment (NotDetected) Medications Administered Current Inpatient Medications Albuterol (Albuterol Hfa 8 Gm Inhaler) 2 puffs INH Q4H PRN PRN Reason: Shortness Of Breath Or Wheezing Stop: 11/27/23 16:02 Cetirizine HCl (Cetirizine Hcl 10 Mg Tablet) 10 mg PO PM LOLIS Stop: 11/27/23 20:59 Last Admin: 10/28/23 20:12 Dose: 10 mg Diphenhydramine HCl (Diphenhydramine Capsule 25 Mg Cap) 25 mg PO Q6H PRN PRN Reason: Itching Stop: 11/27/23 16:02 Famotidine (Famotidine 20 Mg Tab) 20 mg PO BID PRN PRN Reason: Dyspepsia Stop: 11/27/23 16:02 Cefepime HCl 2,000 mg/ Syringe 20 mls @ 5 mls/min IV Q8H [facility]; Protocol Stop: 11/07/23 22:59 Last Admin: 10/29/23 06:07 Dose: 5 mls/min Ketorolac Tromethamine (Ketorolac Tromethamine 15 Mg/Ml Vial) 15 mg IV Q6H PRN PRN Reason: Pain or Fever Stop: 10/30/23 16:02 Last Admin: 10/29/23 08:36 Dose: 15 mg Morphine Sulfate (Morphine Sulfate 4 Mg/Ml 1 Ml Carp\Vial) 3 mg IV Q4H PRN PRN Reason: Severe Pain (Scale 7, 8, 9,10) Stop: 11/11/23 16:02 Multivitamins (Multivitamin Tab) 1 tab PO DAILY [facility] Stop: 11/28/23 08:59 Ondansetron HCl (Ondansetron Inj 2 Mg/Ml 2 Ml Vial) 4 mg IV Q6H PRN PRN Reason: Nausea Stop: 11/27/23 16:02 Oxycodone HCl (Oxycodone Hcl Ir 5 Mg Tab (Immediate Release)) 5 mg PO Q6H PRN PRN Reason: Moderate Pain (Scale 4, 5, 6) Stop: 11/11/23 16:02 Polyethylene Glycol (Polyethylene (Miralax) 17 Gm Pack) 17 gm PO DAILY PRN PRN Reason: Constipation Stop: 11/27/23 16:02 Triamcinolone Acetonide (Triamcinolone Acet 0.1% Oint 15 Gm Tube) 1 appln EXT BID PRN PRN Reason: Rash Stop: 11/27/23 16:02
--- NOTE | 2023-10-29 11:00 | Electrocardiogram Report ---
Test Reason : Blood Pressure : / mmHG Vent. Rate : 088 BPM Atrial Rate : 088 BPM P-R Int : 182 ms QRS Dur : 086 ms QT Int : 370 ms P-R-T Axes : 050 019 032 degrees QTc Int : 447 ms Normal sinus rhythm Normal ECG When compared with ECG of 28-OCT-2023 16:45, No significant change was found Confirmed by Yousif Leonard ([id number]) on 10/29/2023 10:59:41 AM Referred By: Zoie Perry Confirmed By:Yousif Leonard
[2023-10-29] MEDS: MULTIVITAMIN TAB PO SCH (12:15)
[2023-10-29] MEDS: SODIUM CHLORIDE 0.9% 1,000 ML IV SCH (13:53)
[2023-10-29] MEDS: IBUPROFEN 200 MG TAB PO STA (14:59)
[2023-10-29] MEDS: ONDANSETRON INJ 2 MG/ML 2 ML VIAL IV PRN (15:01)
--- NOTE | 2023-10-30 06:18 | Hospitalist Progress Note ---
Date of Service October 30, 2023 Assessment & Plan (1) Pyelonephritis: (2) Hydronephrosis, right: (3) Sepsis: Plan: Gram negative bacteremia Patient is a 47-year-old female with PMH asthma, allergies, GERD presented to ER with complaint of dysuria x 5 days with right flank pain and fever x 2 days. In ER T38.9C, P: 138, R: 16, BP 115/80, 97% on room air. WBC: 20. Lactate WNL, Procalcionin: 2.2. UA: 3+blood, 3+ leuk esterase, >30 WBC, 3+bacteria, 5-10 epithelial cells In ER received 2 L NSS, morphine, Toradol, Rocephin 1 g Blood cultures - posit. for E.coli Repeat blood cultx negat. for 24 hrs Urine culture - posit. E. coli and Klebsiella Patient currently afebrile. WBC down from 20K to 12K BP: 95/59 on admission - cont. IVF No acute distress, mucous membranes moist, normal capillary refill. cont. Cefepime IVF Toradol, oxycodone, morphine prn pain Urology consulted - no plan for any intervention at this time. Cont. to follow. Plan to follow up as outpt. Discussed w/ ID - pt has a knee ligament sprain and so would not prefer cipro at this time, will discharge on bactrim. Follow up w/ [facility] clinic within 1 week. (4) Allergies: Plan: History allergic rhinitis and chronic intermittent hives Benadryl prn Continue home zyrtec (5) Asthma: Plan: No acute exacerbation Continue albuterol prn (6) GERD (gastroesophageal reflux disease): Plan: Chronic. stable Pepcid prn (7) Sprain of medial collateral ligament of left knee: Plan: Following with ortho Continue knee brace as previously directed by ortho DVT Prophylaxis SCDs Full Code as per discussion with pt Follows with Dr Zoie Salazar for routine care Admission and Anticipated Discharge Date Admission Date: October 28, 2023 Subjective Pt seen in follow up of sepsis secondary to pyelonephritis. Gram negative bacteremia Urology also consulted on admission WBC down from 20k to 12K. Currently afebrile. Tmax 37.9C yesterday 3 PM Currently laying in bed, in no acute distress. Overall feeling much better today. Abdominal pain has resolved. No nausea or vomiting. She would like to be discharged home. Review of Systems Review of Systems: All systems reviewed & are unremarkable except as noted in Subjective Physical Exam Physical Exam: General: WDWN F in NAD Head: normocephalic, atraumatic Eyes: conjunctiva non-injected, anicteric ENT: normal inspection external ears, nose, mucous membranes moist Neck: supple Lungs: clear, no respiratory distress, no wheezing/rhonchi/rales CV: rrr, no murmur, no pretibial edema Abd: normal BS, soft, +right CVA tenderness to palpation (much improved), otherwise abdomen non-tender Ext: moves extremities Neuro: A&O x 3, no focal deficits noted, normal affect Skin: warm, dry Results & Data Results & Data Vital Signs (Past 12 Hours) Vital Signs Temp Pulse Pulse Resp BP Pulse Ox O2 Del Method 10/30/23 05:18 37.2 C 100 H 16 104/69 94 Room Air 10/29/23 23:14 95 H 10/29/23 22:27 36.7 C 85 16 100/67 96 Room Air 10/29/23 20:32 36.6 C 92 H 16 107/72 94 Room Air Laboratory Results 10/30/23 Range/Units 07:20 WBC 12.19 H (4.8-10.8) K/ul RBC 3.58 L (4.20-5.40) M/uL Hgb 10.6 L (12.0-16.0) g/dl Hct 31.6 L (37.0-47.0) % MCV 88.3 (80.0-100.0) fL MCH 29.6 (25.0-34.0) pg MCHC 33.5 (32.0-36.0) g/dL RDW Std Deviation 41.7 (36.4-46.3) fL RDW Coeff of Cynthia 12.9 (11.5-14.5) % Plt Count 241 (130-400) K/uL MPV 9.7 (9.4-12.4) fL Sodium 139 (136-145) mmol/L Potassium 3.5 (3.5-5.1) mmol/L Chloride 107 (98-107) mmol/L Carbon Dioxide 26 (21-32) mmol/L Anion Gap 6 (3-11) BUN 7 (6-23) mg/dl Creatinine 0.53 L (0.6-1.2) mg/dl Est Cr Clr Drug Dosing 112.1 ml/min Est GFR ( Amer) 130.1 ml/min Est GFR (Non-Af Amer) 112.3 ml/min BUN/Creatinine Ratio 13.2 (10-20) Glucose 107 H (70-99(Fasting)) mg/dl Calcium 8.7 (8.6-10.3) mg/dl Phosphorus 3.1 (2.5-4.9) mg/dl Magnesium 1.8 (1.7-2.4) mg/dl Medications Administered Current Inpatient Medications Albuterol (Albuterol Hfa 8 Gm Inhaler) 2 puffs INH Q4H PRN PRN Reason: Shortness Of Breath Or Wheezing Stop: 11/27/23 16:02 Cetirizine HCl (Cetirizine Hcl 10 Mg Tablet) 10 mg PO PM ON LICENSE OF [facility] Stop: 11/27/23 20:59 Last Admin: 10/29/23 20:07 Dose: 10 mg Diphenhydramine HCl (Diphenhydramine Capsule 25 Mg Cap) 25 mg PO Q6H PRN PRN Reason: Itching Stop: 11/27/23 16:02 Famotidine (Famotidine 20 Mg Tab) 20 mg PO BID PRN PRN Reason: Dyspepsia Stop: 11/27/23 16:02 Cefepime HCl 2,000 mg/ Syringe 20 mls @ 5 mls/min IV Q8H ON LICENSE OF [facility]; Protocol Stop: 11/07/23 22:59 Last Admin: 10/30/23 06:10 Dose: 5 mls/min Ketorolac Tromethamine (Ketorolac Tromethamine 15 Mg/Ml Vial) 15 mg IV Q6H PRN PRN Reason: Pain or Fever Stop: 10/30/23 16:02 Last Admin: 10/29/23 08:36 Dose: 15 mg Morphine Sulfate (Morphine Sulfate 4 Mg/Ml 1 Ml Carp\Vial) 3 mg IV Q4H PRN PRN Reason: Severe Pain (Scale 7, 8, 9,10) Stop: 11/11/23 16:02 Multivitamins (Multivitamin Tab) 1 tab PO DAILY ON LICENSE OF [facility] Stop: 11/28/23 08:59 Last Admin: 10/29/23 12:15 Dose: 1 tab Ondansetron HCl (Ondansetron Inj 2 Mg/Ml 2 Ml Vial) 4 mg IV Q6H PRN PRN Reason: Nausea Stop: 11/27/23 16:02 Last Admin: 10/29/23 15:01 Dose: 4 mg Oxycodone HCl (Oxycodone Hcl Ir 5 Mg Tab (Immediate Release)) 5 mg PO Q6H PRN PRN Reason: Moderate Pain (Scale 4, 5, 6) Stop: 11/11/23 16:02 Polyethylene Glycol (Polyethylene (Miralax) 17 Gm Pack) 17 gm PO DAILY PRN PRN Reason: Constipation Stop: 11/27/23 16:02 Triamcinolone Acetonide (Triamcinolone Acet 0.1% Oint 15 Gm Tube) 1 appln EXT BID PRN PRN Reason: Rash Stop: 11/27/23 16:02
[2023-10-30 07:40] LABS: Hematocrit (blood only) 31.6 % (37.0-47.0); Hemoglobin 10.6 g/dl (12.0-16.0); Mean Corpuscular Hemoglobin 29.6 pg (25.0-34.0); Mean Corpuscular Hgb Conc 33.5 g/dL (32.0-36.0); Mean Corpuscular Volume 88.3 fL (80.0-100.0); Mean Platelet Volume 9.7 fL (9.4-12.4); Platelet Count 241 K/uL (130-400); RDW Coefficient of Variation 12.9 % (11.5-14.5); RDW Standard Deviation 41.7 fL (36.4-46.3); Red Blood Count 3.58 M/uL (4.20-5.40); White Blood Count 12.19 K/ul (4.8-10.8)
[2023-10-30 08:01] LABS: BUN Creatinine Ratio 13.2 (10-20); Calcium 8.7 mg/dl (8.6-10.3); Creatinine Clr Calc Pharmacy 112.1 ml/min; Est GFR (African American) 130.1 ml/min; Est GFR (Non-African American) 112.3 ml/min; Magnesium 1.8 mg/dl (1.7-2.4); Phosphorus 3.1 mg/dl (2.5-4.9); Potassium 3.5 mmol/L (3.5-5.1)
--- NOTE | 2023-10-30 09:30 | Urology Progress Note ---
Date of Service October 30, 2023 Assessment & Plan (1) Hydronephrosis, right: (2) Pyelonephritis: (3) Acute flank pain: Plan 47yo F who presented with flank pain, fever, and chills admitted with UTI/pyelonephritis. CT abd pelvis on arrival demonstrated mild right-sided hydronephrosis to the level of the UVJ with no obstructing stone identified, mild urothelial thickening within the right renal collecting system and right ureter and mild right perinephric fat stranding which favors right-sided pyelonephrosis. - Afebrile, normotensive and mildly tachycardic. - Labs today show leukocytosis downtrending 20-15-12K today and creatinine stable (0.53). - Urine culture final with E. coli and Klebsiella. Blood cultures final with E. coli, repeat blood cultures pending. - Was on Cefepime now changed to Cefazolin. - Voiding spontaneously, continue to monitor. - No plan for urological intervention. - Continue supportive care and pain management as needed. - Continue antibiotic therapy per final cultures. - We discussed that she will need further evaluation as an outpatient with repeat imaging and possible cystoscopy after her acute issues/infection have resolved, she is agreeable. - Will arrange outpatient follow-up with our service. - Urology will follow peripherally. Please call with any further questions or concerns. Admission and Anticipated Discharge Date Admission Date: October 28, 2023 Subjective Pt examined at bedside this AM. Awake, resting in bed on arrival. No acute distress. Feeling better overall. Denies abdominal, flank, or suprapubic pain at present. Reports she has a headache this morning. Denies fever, chills, nausea, vomiting. Tmax 37.9 C yesterday evening. Voiding without issue. Denies hematuria or dysuria. Review of Systems Constitutional: as per Subjective / HPI Genitourinary: as per Subjective / HPI Physical Exam Constitutional: no acute distress Neck: normal visual inspection Respiratory: no respiratory distress and no labored breathing Musculoskeletal: Head/Neck/Chest: normocephalic Neurologic: moves all extremities and awake Psychiatric: A+Ox3, euthymic affect Results & Data Vital Signs (Past 12 Hours) Vital Signs Temp Pulse Pulse Resp BP Pulse Ox O2 Del Method 10/30/23 07:57 37.2 C 95 H 15 117/74 94 Room Air 10/30/23 07:00 90 10/30/23 05:18 37.2 C 100 H 16 104/69 94 Room Air 10/29/23 23:14 95 H 10/29/23 22:27 36.7 C 85 16 100/67 96 Room Air 10/29/23 20:32 36.6 C 92 H 16 107/72 94 Room Air PG Care Time/CCT Total # of Minutes Spent Total Time Spent with Patient: Total time spent is greater than 50% in coordination of care (as documented) at patient's floor/unit and/or counseling patient: Coding Level of Care Code 06529 SUB INP/OBS CARE 2/35MIN Diagnoses Hydronephrosis, right N13.30 Pyelonephritis N12 Acute flank pain R10.9
[2023-10-30] MEDS: POTASSIUM CHLORIDE CRTAB 20 MEQ TABCR PO STA (09:31)
[2023-10-30] MEDS: ceFAZolin 2000MG 2,000 MG/15 ML SYR IV SCH (14:40)
[2023-10-30] MEDS: IBUPROFEN 200 MG TAB PO STA (15:25)
--- NOTE | 2023-10-30 16:03 | Discharge Summary ---
Date of Service October 30, 2023 Admission HPI Per Admitting Provider Patient is a 47-year-old female with PMH asthma, allergies, GERD presented to ER with complaint of right flank pain and fever. History obtained from patient as well as outpatient chart review. Patient states 5 days ago started with dysuria and cloudy urine. Had routine gynecology check up 5 days ago. States urinary symptoms have not improved. Two days ago started with right back pain. Yesterday with fever. Tmax 39.3 C at home last night and also having chills. Has some nausea without vomiting. States has been eating and drinking normally. States has hives intermittently and takes Zyrtec daily for chronic pruritus. Denies vaginal discharge. Denies diarrhea, constipation, MARTIN, dizziness, syncope, vision changes, neck pain, CP, SOB, orthopnea, palpitations, cough, sore throat, rhinorrhea, other abdominal pain, paresthesias, weakness, extremity edema, rashes, hematuria. Admission Exam Per Admitting Provider General: no acute distress, non-toxic appearing, WDWN Head: normocephalic, atraumatic Eyes: conjunctiva non-injected, anicteric ENT: normal inspection external ears, nose, mucous membranes moist Neck: supple, trachea midline, non-tender Lungs: clear, no respiratory distress, no wheezing/rhonchi/rales CV: +tachycardic, rate 138, regular rhythm, no murmur, no pretibial edema Abd: normal BS, soft, +right CVA tenderness to palpation, otherwise abdomen non- tender Ext: no cyanosis, no calf tenderness Neuro: A&O x 3, no focal deficits noted, normal affect Skin: warm, dry Principal Diagnosis E. coli bacteremia Pyelonephritis Discharge Exam General: WDWN F in NAD Head: normocephalic, atraumatic Eyes: conjunctiva non-injected, anicteric ENT: normal inspection external ears, nose, mucous membranes moist Neck: supple Lungs: clear, no respiratory distress, no wheezing/rhonchi/rales CV: rrr, no murmur, no pretibial edema Abd: normal BS, soft, +right CVA tenderness to palpation (much improved), otherwise abdomen non-tender Ext: moves extremities Neuro: A&O x 3, no focal deficits noted, normal affect Skin: warm, dry Discharge Data Allergies Allergy/AdvReac Type Severity Reaction Status Date / Time acetaminophen Allergy Rash Verified 10/28/23 10:27 codeine Allergy Rash Verified 10/28/23 10:26 Consultations 10/28/23 13:34 ED Decision to Admit Stat 10/28/23 14:34 Consult Urology Routine Ordered Studies 10/28/23 09:23 CT abd pelvis IV con only Stat FINDINGS: Mild dependent changes seen at the lung bases. No pneumoperitoneum. No pneumatosis. No acute fractures identified. No hepatic masses. There are few small stones within the gallbladder fundus. No gallbladder wall thickening. The main portal vein is patent. The pancreas, spleen, and adrenal glands unremarkable. There is a punctate stone within the upper pole the left kidney. Mild scarring within the upper pole the left kidney. No left-sided hydronephrosis. There is mild right hydroureteronephrosis to the level of the ureterovesical junction. No obstructing stones identified. There is mild urothelial thickening within the right renal collecting system and right ureter. Subtle heterogeneous enhancement within the right kidney is noted. There is mild right perinephric fat stranding. There is mild bladder wall thickening. The uterus and bilateral adnexa are unremarkable. No pelvic free fluid. No retroperitoneal or pelvic lymphadenopathy. Normal caliber abdominal aorta. No bowel wall thickening or obstruction. Prior rectal anastomosis. No bowel wall thickening or obstruction. Normal appendix. IMPRESSION: 1. There is mild right hydroureteronephrosis to the level of the ureterovesical junction. No obstructing stones identified. There is mild urothelial thickening within the right renal collecting system and right ureter. Subtle heterogeneous enhancement within the right kidney is noted. There is mild right perinephric fat stranding. Therefore, these findings favor a right-sided pyelonephritis/pyelitis. However, this does not explain the right-sided hydronephrosis. This could be due to recently passed stone, an occult stone, or occult obstructing lesion at the ureterovesical junction. Urology consultation recommended. 2. Left-sided nephrolithiasis. No left-sided hydronephrosis. 3. No bowel wall thickening or obstruction. 4. Mild bladder wall thickening. This favors a mild cystitis. Recommend correlation with urinalysis. 5. Normal appendix. 6. Cholelithiasis. No gallbladder wall thickening. Hospital Course (1) Pyelonephritis: (2) Hydronephrosis, right: (3) Sepsis: Gram negative bacteremia Patient is a 47-year-old female with PMH asthma, allergies, GERD presented to ER with complaint of dysuria x 5 days with right flank pain and fever x 2 days. In ER T38.9C, P: 138, R: 16, BP 115/80, 97% on room air. WBC: 20. Lactate WNL, Procalcionin: 2.2. UA: 3+blood, 3+ leuk esterase, >30 WBC, 3+bacteria, 5-10 epithelial cells In ER received 2 L NSS, morphine, Toradol, Rocephin 1 g Blood cultures - posit. for E.coli Repeat blood cultx negat. for 24 hrs Urine culture - posit. E. coli and Klebsiella Patient currently afebrile. WBC down from 20K to 12K BP: 95/59 on admission - cont. IVF No acute distress, mucous membranes moist, normal capillary refill. cont. Cefepime -> switched to cefazolin IVF Toradol, oxycodone, morphine prn pain Urology consulted - no plan for any intervention at this time. Cont. to follow. Plan to follow up as outpt. Discussed w/ ID - pt has a knee ligament sprain and so would not prefer cipro at this time, will discharge on bactrim. Follow up w/ [facility] clinic within 1 week. (4) Allergies: History allergic rhinitis and chronic intermittent hives Benadryl prn Continue home zyrtec (5) Asthma: No acute exacerbation Continue albuterol prn (6) GERD (gastroesophageal reflux disease): Chronic. stable Pepcid prn (7) Sprain of medial collateral ligament of left knee: Following with ortho Continue knee brace as previously directed by ortho Follows with Dr Zoie Salazar for routine care/ [facility] Total Time Total Time Spent Total Time Spent (In Minutes): 40 Discharge Plan Discharge Items Patient Disposition: Home - Self-Care Reason For Visit: PYELONEPHRITIS Discharge Diagnosis: E. coli bacteremia Pyelonephritis Activity: Per Instructions section Non-emergency contact: Primary Care Provider and Specialist Call non-emergency contact if: you have any medication questions and your symptoms worsen Follow-up/Referrals: Zoie Perry DO [Primary Care Provider] - Diet: Regular Addtl Attending Provider Instructions: Follow up with your primary care doctor and urologist. It is recommended that you are seen by primary care physician within 1 week. Finish antibiotic treatment as prescribed. Make sure you are drinking plenty of water. Pending Studies at Discharge: Yes Studies:: results of repeat blood cultures Stand-Alone Forms: My [facility], Smoking Cessation Medications and DC Order Prescriptions: New sulfamethoxazole-trimethoprim [Bactrim DS] 800-160 mg tablet 1 tab PO BID 11 Days Qty: 22 0RF Continued magnesium Tablet 1 tab PO HS Rx Instructions: unknown strength Fish Oil 1 cap PO HS Rx Instructions: unknown strength cranberry 1 tab PO HS Rx Instructions: unknown strength lutein 1 tab PO HS Rx Instructions: unknown strength cetirizine [Zyrtec] 10 mg Tablet 10 mg PO PM multivitamin Tablet 1 tab PO DAILY omeprazole 20 mg Tablet,Delayed Release (Dr/Ec) 20 mg PO DAILY PRN (Reason: gerd) albuterol sulfate 90 mcg/actuation Hfa Aerosol Inhaler 2 puff INHALATION Q4H PRN (Reason: Shortness Of Breath Or Wheezing) Discharge Orders: Discharge Order (Routine); Ordered 10/30/23 Ordered By: Alvarado Bustos Admission Data Admit Date/Time: 10/28/23 13:41 Attending Provider: Alvarado Bustos Admit Provider: Emerita Cummins Primary Care Provider: Zoie Perry Other Providers: Byron Donohue; Emerita Cummins
--- NOTE | 2023-11-02 19:00 | Coding Query ---
SEPSIS To promote full compliance with coding requirements relating to patient care, physician participation is requested in all cases of cam specialist uncertainty. Please assist us with the question(s) below: In responding to this query, please exercise your independent professional judgement. The fact that a question is asked does not imply that any particular answer is desired or expected. We appreciate your clarification on this issue. The medical record reflects the following clinical findings: Patient admitted with pyelonephritis and hydronephrosis. Discharge summary mentions both Sepsis and Bacteremia . Please check below the diagnosis that was diagnosed/treated during this inpatient stay. Thank you. Charly Negrete [facility] ____ ( x)Bacteremia (Nonspecific laboratory finding of bacteria in the blood) Specify Organism ( x) Present on Admission ( ) Not present on admission ( ) Unable to clinically determine ( ) Septicemia (Systemic disease associated with the presence of pathogenic microorganisms in the blood): Specify Organism ( ) Present on Admission ( ) Not present on admission ( ) Unable to clinically determine (x ) Sepsis Specify Organism Specify Associated Condition/Diagnosis ( x) Present on Admission ( ) Not present on admission ( ) Unable to clinically determine ( ) Severe Sepsis (Sepsis associated with acute organ dysfunction) Specify Organism Specify Associated Condition/Diagnosis ( ) Present on Admission ( ) Not present on admission ( ) Unable to clinically determine ( ) Septic Shock (Severe sepsis with acute circulatory failure, unexplained by other causes) ( ) Present on Admission ( ) Not present on admission ( ) Unable to clinically determine ( ) Other, patient has: MTDD
== END 2023-10-30 17:18 | disposition home or self-care (01) | DRG 872 ==
LOC: ED 08:51 → 2N 13:41 → SUATTDRO 13:41 → 2N 15:11